=== PATIENT | female | born 1950 | race Caucasian/White ===

== ENCOUNTER 2017-11-05 07:51 | Day surgery (SDC) | payer OTHER, MEDICAID ==
[2017-11-05] MEDS: ISOSULFAN BLUE 1% 5 ML INJ SC
[~2017-11-05 07:51] MED LIST: LIDOCAINE 2% (SDV) 5 ML INJ; PROPOFOL 200 MG INJ
[2017-11-05] MEDS ORDERED: CEFAZOLIN 2 GM/50 ML (PMX) 50 ML IVPB (12:00)
[2017-11-05] MEDS ORDERED: SOD CHLORIDE 0.9% 1,000 ML IV (12:00)
[2017-11-05] MEDS ORDERED: ISOSULFAN BLUE 1% 5 ML INJ SC (12:23)
[2017-11-05] MEDS ORDERED: HYDROmorphONE 1 MG/5 ML IV SYRINGE IV ×3 (12:30)
[2017-11-05] MEDS ORDERED: OXYCODONE/ACETAMINOPHEN (5/325) TAB PO (12:30)
[2017-11-05] MEDS ORDERED: hydrALAzine 20 MG INJ IV (12:30)
[2017-11-05] MEDS ORDERED: PROCHLORPERAZINE 10 MG INJ IV (12:30)
[2017-11-05] MEDS ORDERED: FENTAnyl 50 MCG/ML VIAL IV (12:30)
[2017-11-05] MEDS ORDERED: DIPHENHYDRAMINE 50 MG INJ IV (12:30)
[2017-11-05] MEDS ORDERED: LABETALOL HCL 20MG INJ IV (12:30)
[2017-11-05] MEDS ORDERED: FENTAnyl 50 MCG/ML VIAL (12:36)
[2017-11-05] MEDS ORDERED: MIDAZOLAM 1 MG/ML 2 ML INJ (12:36)
[2017-11-05] MEDS ORDERED: PHENYLephrine (100 MCG/ML) 5ML SYG (13:01)
[2017-11-05] MEDS ORDERED: CEFAZOLIN 1 GM INJ (13:07)
[2017-11-05] MEDS ORDERED: FAMOTIDINE 20 MG INJ (13:09)
[2017-11-05] MEDS ORDERED: DEXAMETHASONE 4 MG/ML 1 ML INJ (13:09)
[2017-11-05] MEDS ORDERED: ONDANSETRON 4 MG INJ (13:09)
[2017-11-05] MEDS ORDERED: EPHEDrine 25 MG/5 ML SYG (13:11)
[2017-11-05] MEDS ORDERED: GLYCOPYRROLATE 0.4 MG INJ (13:44)
[2017-11-05] MEDS: MEPERIDINE 25 MG INJ IV (14:26)
[2017-11-05] MEDS: ONDANSETRON 4 MG INJ IV (14:27)
[2017-11-05] MEDS: HYDROCODONE/APAP (7.5/325) TAB PO (15:24)
== END 2017-11-05 15:40 | disposition home or self-care (01) ==
LOC: SDS 07:51
DX: D05.12 Intraductal carcinoma in situ of left breast (principal); I10 Essential (primary) hypertension; E78.5 Hyperlipidemia, unspecified; E11.9 Type 2 diabetes mellitus without complications
CPT/HCPCS: 19301; 71045; 82962; 88307; 88331; 88342; 93005